=== PATIENT | male | born 1980 | race Caucasian/White ===

== ENCOUNTER 2020-09-15 01:42 | Emergency (ER) | payer OTHER ==
[~2020-09-15] VITALS: Ht 182.9 cm; Wt 90.9 kg
[2020-09-15] MEDS ORDERED: KETOROLAC 30 MG/ML 1ML VIAL IV ONE (02:45)
[2020-09-15] MEDS ORDERED: NS 1,000 ML IV ONE (02:45)
[2020-09-15 03:03] LABS: BASO % 0.5 % (0.0-1.0); EOS # 0.1 10^3/uL (0.0-0.5); EOS % 1.4 % (0.0-3.0); HEMATOCRIT 49.1 % (42.0-52.0); HEMOGLOBIN 16.3 g/dl (13.5-17.5); LYMPH # 2.1 10^3/uL (1.5-5.0); LYMPH % 32.2 % (24.0-44.0); MEAN CORPUSCULAR HGB CONC 33.2 g/dl (32.0-36.5); MEAN CORPUSCULAR VOLUME 90.3 fl (80.0-96.0); MONO # 0.5 10^3/uL (0.0-0.8); NEUTROPHILS # 3.8 10^3/uL (1.5-8.5); NEUTROPHILS % 57.7 % (36.0-66.0); PLATELET COUNT, AUTOMATED 227 10^3/uL (150-450); RED BLOOD COUNT 5.44 10^6/uL (4.30-6.10); WHITE BLOOD COUNT 6.6 10^3/uL (4.0-10.0)
[2020-09-15 03:07] LABS: AMORPHOUS SEDIMENT SMALL (NEGATIVE); APPEARANCE, URINE CLEAR (CLEAR); BACTERIA, URINE AUTO NEGATIVE (NEGATIVE); BILIRUBIN, URINE AUTO NEGATIVE (NEGATIVE); BLOOD, URINE BLOOD NEGATIVE (NEGATIVE); COLOR, URINE YELLOW (YELLOW); GLUCOSE, URINE (UA) AUTO NEGATIVE (NEGATIVE); KETONE, URINE AUTO NEGATIVE (NEGATIVE); LEUKOCYTE ESTERASE, URINE AUTO NEGATIVE (NEGATIVE); MUCUS, URINE SMALL (NEGATIVE); NITRITE, URINE AUTO NEGATIVE (NEGATIVE); PROTEIN, URINE AUTO NEGATIVE (NEGATIVE); RBC, URINE AUTO 0 /HPF (0-3); SPECIFIC GRAVITY URINE AUTO 1.016 (1.002-1.035); SQUAMOUS EPITHELIAL CELL UR AU 0 /HPF (0-6); UROBILINOGEN, URINE AUTO 0.2 mg/dL (0.0-2.0); WBC, URINE AUTO 0 /HPF (0-3)
[2020-09-15 03:14] LABS: INR 0.92; PARTIAL THROMBOPLASTIN TIME 28.9 SECONDS (24.2-38.5); PROTHROMBIN TIME 12.6 SECONDS (12.5-14.3)
--- NOTE | 2020-09-15 03:30 | REPVR ---
PROCEDURE INFORMATION: Exam: CT Abdomen And Pelvis Without Contrast Exam date and time: 09/15/2020 3:08 AM Age: 40 years old Clinical indication: Abdominal pain; Flank; Right; Additional info: R/O kidney stones TECHNIQUE: Imaging protocol: Computed tomography of the abdomen and pelvis without contrast. Radiation optimization: All CT scans at this facility use at least one of these dose optimization techniques: automated exposure control; mA and/or kV adjustment per patient size (includes targeted exams where dose is matched to clinical indication); or iterative reconstruction. COMPARISON: No relevant prior studies available. FINDINGS: Lungs: Minimal bibasilar fibro-atelectatic change with minimal bilateral lower lobe ground-glass infiltrates. Liver: Normal. No mass. Gallbladder and bile ducts: The gallbladder is contracted with no stones. Pancreas: Normal. No ductal dilation. Spleen: Normal. No splenomegaly. Adrenal glands: Normal. No mass. Kidneys and ureters: Probable left renal cyst measuring up 10 mm. No renal or ureteral calculi are seen. Difficult to characterize due to small size and lack of contrast. Stomach and bowel: Surgical clips adjacent to the cecal tip suggesting prior appendectomy. The appendix is not seen. There is colonic diverticulosis without evidence of diverticulitis. Appendix: See "Stomach and bowel" finding. Intraperitoneal space: Unremarkable. No free air. No significant fluid collection. Vasculature: Unremarkable. No abdominal aortic aneurysm. Lymph nodes: Unremarkable. No enlarged lymph nodes. Urinary bladder: Unremarkable as visualized. Reproductive: Unremarkable as visualized. Bones/joints: Unremarkable. No acute fracture. Soft tissues: Unremarkable. IMPRESSION: 1. Minimal bibasilar fibro-atelectatic change with minimal bilateral lower lobe ground-glass infiltrates which may reflect pneumonia. 2. Colonic diverticulosis without diverticulitis. 3. Otherwise negative CT abdomen/pelvis. No renal or ureteral calculi are evident and there is no evidence of obstructive uropathy. COMMENTS: Consistent with the [employer]'s Incidental Findings Committee white paper ([employer] 2018): Any incidental renal lesion less than 1 cm or classified as too small to characterize, or any incidental cystic renal lesion characterized as simple-appearing, is likely benign. No follow-up imaging is recommended for these lesions per consensus recommendations based on imaging criteria. Electronically signed by: Adriano Vazquez On 09/15/2020 03:30:05 AM
[2020-09-15 03:34] LABS: ALBUMIN 4.3 GM/DL (3.2-5.2); ALT/SGPT 39 U/L (12-78); BILIRUBIN,DIRECT 0.2 MG/DL (0.0-0.2); BILIRUBIN,TOTAL 1.1 MG/DL (0.2-1.0); BLOOD UREA NITROGEN 14 MG/DL (7-18); CALCIUM LEVEL 9.6 MG/DL (8.5-10.1); CARBON DIOXIDE LEVEL 27 MEQ/L (21-32); CHLORIDE LEVEL 107 MEQ/L (98-107); CREATININE FOR GFR 1.04 MG/DL (0.70-1.30); GLOMERULAR FILTRATION RATE > 60.0 (>60); GLUCOSE, FASTING 101 MG/DL (70-100); POTASSIUM SERUM 4.4 MEQ/L (3.5-5.1); SODIUM LEVEL 139 MEQ/L (136-145); TOTAL PROTEIN 7.8 GM/DL (6.4-8.2)
[2020-09-15] MEDS ORDERED: methocarbamoL 500 MG TAB PO ONE (03:45)
[2020-09-15] MEDS ORDERED: IBUP-1022 PO (05:28)
[2020-09-15] MEDS ORDERED: METH1TAB40 PO (05:28)
[2020-09-15 05:30] VITALS: BP 129/81
== END 2020-09-15 05:51 | disposition home or self-care (01) ==
LOC: M ED 01:42
DX: S39.012A Strain of muscle, fascia and tendon of lower back, initial encounter (principal); X50.0XXA Overexertion from strenuous movement or load, initial encounter; Y92.9 Unspecified place or not applicable; Y93.9 Activity, unspecified; R91.8 Other nonspecific abnormal finding of lung field; K57.30 Diverticulosis of large intestine without perforation or abscess without bleeding
CPT/HCPCS: 74176; 80048; 80076; 81001; 85025; 85610; 85730; 96361; 96374; 99284; J1885

== ENCOUNTER → 2022-01-20 | Outpatient (REF) | payer OTHER ==
[~2022-01-20] MED LIST: IBUP-1022 PO; METH-1164 PO
== END ==
LOC: M SMT 18:56
PROVIDERS: ATTEND Urology
DX: Z30.2 Encounter for sterilization (principal)